=== PATIENT | female | born 1965 | race Caucasian/White ===

== ENCOUNTER 2023-04-11 16:45 | Inpatient (IN) | payer OTHER, SELFPAY ==
[~2023-04-11 16:45] MED LIST: Iopamidol-370 76% 500 ML MDV (1 ML CHARGE) ONE
[2023-04-11] MEDS ORDERED: Acetaminophen 650 MG Suppository ONE (17:07)
[2023-04-11 17:23] LABS: #Monocytes 2.5 thou/uL (0.11-0.59); #Neutrophils 12.5 thou/uL (1.40-6.50); %Basophils 0.1 % (0.0-1.0); %Eosinophils 0.1 % (0.0-10.0); %Lymphocytes 1.6 % (21.0-51.0); %Monocytes 15.5 % (0.0-10.0); %Neutrophils 78.5 % (42.0-75.0); Hemoglobin 13.4 g/dL (12.0-16.0); Mean Corpuscular HGB CONC 35.7 g/dL (32.0-36.0); Mean Corpuscular Hemoglobin 30.8 pg (27.0-31.0); Mean Corpuscular Volume 86.2 fl (78.0-98.0); Mean Platelet Volume 8.4 fL (7.4-10.4); Platelet Count 482 10x3/uL (130-400); RBC Distribution Width 12.3 % (11.5-14.5); Red Blood Cell (RBC) Count 4.35 mill/uL (4.20-5.40); White Blood Cell (WBC) Count 15.9 10x3/uL (4.8-10.8)
[2023-04-11] MEDS ORDERED: Cefepime 2 GM VIAL ONE (17:25)
[2023-04-11 17:38] LABS: CAUTI Indications for Culture Alt mental st,lethar; RBC/HPF Greater than 50 HPF (0-3); Squamous Epithelial 0-3 HPF (0-3)
[2023-04-11 17:39] LABS: Bacteria/HPF 1+ HPF (None Seen)
[2023-04-11 17:46] LABS: ALT (SGPT) 10 U/L (8-55); AST (SGOT) 15 U/L (5-34); Alkaline Phosphatase 70 U/L (40-110); Anion Gap 20 mmol/L (10-20); BUN (Urea Nitrogen) 13 mg/dL (9.8-20.1); Bilirubin, Total 0.6 mg/dL (0.2-1.2); CK (CPK) 35 U/L (29-168); Calc. Creatinine Clearance 0 mL/min (70-130); Calcium 9.3 mg/dL (7.8-10.44); Carbon Dioxide 19 mmol/L (22-29); Chloride 86 mmol/L (98-107); Estimated GFR 97; Globulin 4.1 g/dL (2.4-3.5); Glucose 145 mg/dL (70-105); Lipase 32 U/L (8-78); Potassium 3.1 mmol/L (3.5-5.1); Protein, Total 8.1 g/dL (6.0-8.3); Sodium 122 mmol/L (136-145)
[2023-04-11 17:58] LABS: Bilirubin Negative (Negative); Blood, Urine Moderate (Negative); Glucose, Urine (Dipstick) Negative (Negative); Ketone, Urine > or equal to 80 mg/dL (Negative); Leukocyte Negative (Negative); Nitrite Negative (Negative); Protein, Urine (Dipstick) 100 mg/dL (Neg-Trace); Urobilinogen 0.2 mg/dL (Less than 2); pH, Urine 6.5 (5.0-9.0)
[2023-04-11 17:59] LABS: Clarity Clear (Clear); Specific Gravity, Urine 1.021 (1.002-1.036)
[2023-04-11 18:02] LABS: Urine Culture Reflex No No
[2023-04-11] MEDS ORDERED: Succinylcholine 200 MG/10 ml SYRINGE FS ONE (18:47)
[2023-04-11] MEDS ORDERED: Propofol 1,000 MG/100 ML VIAL IV ONE (19:07)
[2023-04-11] MEDS ORDERED: Sodium Chloride 0.9% 1,000 ML IV SCH ×2 (19:15→22:30)
[2023-04-11 19:45] LABS: Actual Bicarbonate (HCO3a) 18.8 mEq/L (22-28); Analyzer IN Cardio ER; Calcium, Ionized (arterial) 1.01 mmol/L (1.12-1.30); Carboxyhemoglobin (COHb) 0.3 gm% (0.0-3.0); Hematocrit-ABG 35 % (36.0-47.0); Hemoglobin (Hb) 11.9 g/dL (12.0-16.0); O2 Tension (PaO2), arterial 368.8 mmHg (> 80.0); Potassium - ABG Lab 2.76 mmol/L (3.70-5.30); pH, Arterial 7.544 (7.35-7.45)
[2023-04-11 19:48] LABS: CO2 Tension 22.3 mmHg (35.0-45.0)
[2023-04-11 19:49] LABS: ALV-art Gradient -40.175 mmHg (0-20); Puncture Site LBA
[2023-04-11] MEDS ORDERED: Electrolyte Replacement Protocol 1 EACH IVPB SCH (19:52)
[2023-04-11] MEDS ORDERED: Acetaminophen 650 MG Suppository PR PRN (19:52)
[2023-04-11] MEDS ORDERED: Ventilator Sedation Protocol 1 EACH FS SCH (20:00)
[2023-04-11] MEDS ORDERED: Fentanyl BOLUS 250 ML IVPB PRN (20:15)
[2023-04-11] MEDS ORDERED: Propofol 1,000 MG/100 ML VIAL IV PRN (20:15)
[2023-04-11] MEDS ORDERED: Morphine 2 MG/ML VIAL SLOW IVP PRN (20:15)
[2023-04-11] MEDS ORDERED: Propofol BOLUS 1,000 MG/100 ML VIAL IV PRN (20:15)
[2023-04-11] MEDS ORDERED: DISCONTINUE PREVIOUS NARCOTIC PAIN MEDICATIONS AND BENZODIAZEPINES FS SCH (20:15)
[2023-04-11] MEDS ORDERED: Lorazepam 2 MG/ML VIAL SLOW IVP PRN (20:15)
[2023-04-11] MEDS ORDERED: Fentanyl CADD 100 ML IV SCH (20:15)
[2023-04-11] MEDS ORDERED: Vancomycin 1 GM in Premix Bag 1 BAG IVPB SCH (21:00)
[2023-04-11 21:24] LABS: CSF Source CSF; Clarity Hazy (Clear); Tube # 1
[2023-04-11 21:25] LABS: CSF Source CSF; Clarity Hazy (Clear); Tube # 4
[2023-04-11] MEDS ORDERED: VANCOMYCIN 2 GRAM/500 ML BAG 2 GM in Premix Bag 1 BAG IVPB SCH (21:30)
[2023-04-11 21:35] LABS: Acetaminophen Less than 10 mcg/mL (10.0-30.0); Salicylate Less than 8.0 mg/dL (15.0-30.0)
[2023-04-11] MEDS: AMPicillin 1 GM in Sodium Chloride 0.9% 100 ML IVPB SCH (21:42)
[2023-04-11 21:44] LABS: CSF, Glucose 20 mg/dl (40-70)
[2023-04-11 21:47] LABS: Color Of CSF Supernatant STRAW (Colorless); Unspun CSF Color COLORLESS (Colorless)
[2023-04-11 21:48] LABS: Tube # 2
[2023-04-11 22:05] LABS: Cell Count Non Hematic 6 %; Lymphocytes 4 %; Segmented Neutrophils 90 %
[2023-04-11 22:06] LABS: Cell Count Non Hematic 6 %; Lymphocytes 4 %; Segmented Neutrophils 90 %
[2023-04-11 22:07] LABS: Amphetamine Not Detected (NotDetected); Barbiturates Screen Not Detected (NotDetected); Benzodiazepine Screen Not Detected (NotDetected); Cocaine Metabolite Screen Not Detected (NotDetected); Methadone Not Detected (NotDetected); Methamphetamine Not Detected (NotDetected); Opiate Screen Not Detected (NotDetected); Oxycodone Screen Not Detected (NotDetected); Phencyclidine (PCP) Not Detected (NotDetected); THC/Cannabinoid Screen Not Detected (NotDetected); Tricyclic Screen Not Detected (NotDetected)
[2023-04-11] MEDS ORDERED: Ipratropium/Albuterol 3 ML NEB NEB PRN (22:21)
[2023-04-11] MEDS: Acyclovir Sodium 800 MG in Sodium Chloride 0.9% 250 ML 250 ML IVPB SCH (22:23)
[2023-04-11] MEDS: Potassium Chloride 20 MEQ in Premix Bag 1 BAG IVPB SCH ×2 (22:38)
[2023-04-11 22:52] LABS: CSF, Protein 536 mg/dL (15-40)
[2023-04-12] MEDS: Potassium Chloride 20 MEQ in Premix Bag 1 BAG IVPB SCH ×3 (00:40→10:13)
[2023-04-12] MEDS: AMPicillin 1 GM in Sodium Chloride 0.9% 100 ML IVPB SCH (02:22)
[2023-04-12 04:05] LABS: Hemoglobin 11.7 g/dL (12.0-16.0); Manual Diff?? YES; Mean Corpuscular HGB CONC 34.4 g/dL (32.0-36.0); Mean Corpuscular Hemoglobin 30.7 pg (27.0-31.0); Platelet Count 396 10x3/uL (130-400); RBC Distribution Width 12.6 % (11.5-14.5); Red Blood Cell (RBC) Count 3.81 mill/uL (4.20-5.40); White Blood Cell (WBC) Count 13.9 10x3/uL (4.8-10.8)
[2023-04-12 04:17] LABS: Delete Auto Diff?? YES; Mean Corpuscular Volume 89.2 fl (78.0-98.0)
[2023-04-12 04:45] LABS: Burr Cells SLIGHT = 2-5 cells HPF (0-1); CellaVision Operator ID lab.abc; Lymphocytes 3 % (21-51); Monocytes 15 % (0-10); Neutrophil 81 % (42-75); Platelet Adequacy Comment Platelets Normal; Reactive Lymphocytes 1 % (0-10); Smudge Cells 5.9 %; Total Cell Count 102
[2023-04-12 04:48] LABS: Anion Gap 23 mmol/L (10-20); BUN (Urea Nitrogen) 11 mg/dL (9.8-20.1); Calc. Creatinine Clearance 111 mL/min (70-130); Calcium 9.8 mg/dL (7.8-10.44); Carbon Dioxide 18 mmol/L (22-29); Chloride 83 mmol/L (98-107); Estimated GFR 99; Glucose 121 mg/dL (70-105); Potassium 2.9 mmol/L (3.5-5.1); Sodium 121 mmol/L (136-145)
[2023-04-12 04:51] LABS: ALT (SGPT) 8 U/L (8-55); AST (SGOT) 16 U/L (5-34); Albumin 2.8 g/dL (3.5-5.0); Alkaline Phosphatase 54 U/L (40-110); Anion Gap 14 mmol/L (10-20); BUN (Urea Nitrogen) 8 mg/dL (9.8-20.1); Bilirubin, Total 0.4 mg/dL (0.2-1.2); Calc. Creatinine Clearance 137 mL/min (70-130); Calcium 7.8 mg/dL (7.8-10.44); Carbon Dioxide 18 mmol/L (22-29); Chloride 108 mmol/L (98-107); Estimated GFR 104; Globulin 3.3 g/dL (2.4-3.5); Glucose 98 mg/dL (70-105); Potassium 3.2 mmol/L (3.5-5.1); Protein, Total 6.1 g/dL (6.0-8.3); Sodium 137 mmol/L (136-145)
[2023-04-12] MEDS ORDERED: Cefepime 1 GM in Sodium Chloride 0.9% 100 ML IVPB SCH (05:00)
[2023-04-12] MEDS: Acyclovir Sodium 800 MG in Sodium Chloride 0.9% 250 ML 250 ML IVPB SCH ×2 (05:07→13:11)
[2023-04-12] MEDS ORDERED: Lactated Ringer's 500 ML IV SCH (06:15)
[2023-04-12] MEDS: Sodium Chloride 0.9% 1,000 ML IV SCH ×2 (06:35→20:47)
[2023-04-12] MEDS ORDERED: Lactated Ringer's 1,000 ML IV SCH (06:45)
[2023-04-12] MEDS: cefTRIAXone\\ROCEPHIN 2 GM in Sodium Chloride 0.9% 100 ML IVPB SCH ×2 (10:11→20:48)
[2023-04-12] MEDS: Dexamethasone 10 MG/ML VIAL SLOW IVP SCH ×2 (10:13→20:48)
[2023-04-12] MEDS: Famotidine/PF 20 mg/2ml Vial SLOW IVP SCH ×2 (10:14→20:48)
[2023-04-12] MEDS ORDERED: Magnevist 469MG/ML 20 ML VIAL ONE (10:32)
[2023-04-12] MEDS: VANCOMYCIN 1.25 GM/250 ML BAG 1.25 GM in Premix Bag 1 BAG IVPB SCH ×2 (10:48→22:07)
[2023-04-12] MEDS ORDERED: Nitroglycerin 2% Ointment 1 INCH/1 GM Packet TOP SCH (11:30)
[2023-04-12] MEDS ORDERED: hydrALAZINE 20 MG/ML VIAL SLOW IVP SCH (11:30)
[2023-04-12] MEDS ORDERED: Lidocaine 1% w/Epinephrine 1:100K 20 ML VIAL FS SCH (12:00)
[2023-04-12] MEDS: Ampicillin 2 GM in Sodium Chloride 0.9% 100 ML IVPB SCH ×3 (14:13→20:48)
[2023-04-12] MEDS ORDERED: Labetalol HCl 100 MG/20 ML VIAL SLOW IVP PRN (19:29)
[2023-04-13] MEDS: Ampicillin 2 GM in Sodium Chloride 0.9% 100 ML IVPB SCH ×6 (01:01→20:09)
[2023-04-13] MEDS ORDERED: Sodium Chloride 0.9% 500 ML IV SCH (01:30)
[2023-04-13 05:30] LABS: ALT (SGPT) 10 U/L (8-55); AST (SGOT) 20 U/L (5-34); Albumin 2.9 g/dL (3.5-5.0); Alkaline Phosphatase 59 U/L (40-110); Anion Gap 19 mmol/L (10-20); BUN (Urea Nitrogen) 9 mg/dL (9.8-20.1); Bilirubin, Total 0.2 mg/dL (0.2-1.2); Calc. Creatinine Clearance 145 mL/min (70-130); Calcium 8.5 mg/dL (7.8-10.44); Carbon Dioxide 16 mmol/L (22-29); Chloride 103 mmol/L (98-107); Estimated GFR 104; Globulin 3.7 g/dL (2.4-3.5); Glucose 117 mg/dL (70-105); Magnesium 1.8 mg/dL (1.6-2.6); Phosphorus 2.2 mg/dL (2.3-4.7); Potassium 3.7 mmol/L (3.5-5.1); Protein, Total 6.6 g/dL (6.0-8.3); Sodium 134 mmol/L (136-145)
[2023-04-13] MEDS ORDERED: Magnesium 2 GM/50 ML(in water) 2 GM in Premix Bag 1 BAG IVPB SCH (08:00)
[2023-04-13] MEDS: Famotidine/PF 20 mg/2ml Vial SLOW IVP SCH ×2 (08:14→20:08)
[2023-04-13] MEDS: cefTRIAXone\\ROCEPHIN 2 GM in Sodium Chloride 0.9% 100 ML IVPB SCH ×2 (08:14→20:08)
[2023-04-13] MEDS: Dexamethasone 10 MG/ML VIAL SLOW IVP SCH ×2 (08:14→20:08)
[2023-04-13] MEDS: Sodium Chloride 0.9% 1,000 ML IV SCH ×2 (08:15→16:27)
[2023-04-13 11:02] LABS: Vancomycin, Trough 8.5 ug/mL
[2023-04-13] MEDS: VANCOMYCIN 1.25 GM/250 ML BAG 1.25 GM in Premix Bag 1 BAG IVPB SCH (11:42)
[2023-04-13] MEDS: VANCOMYCIN 1.75 GM/500 ML BAG 1.75 GM in Premix Bag 1 BAG IVPB SCH ×2 (12:02→23:59)
[2023-04-13 12:44] LABS: #Monocytes 1.2 thou/uL (0.11-0.59); #Neutrophils 12.7 thou/uL (1.40-6.50); %Basophils 0.1 % (0.0-1.0); %Lymphocytes 2.1 % (21.0-51.0); %Monocytes 8.3 % (0.0-10.0); %Neutrophils 87.7 % (42.0-75.0); Hemoglobin 12.9 g/dL (12.0-16.0); Mean Corpuscular HGB CONC 33.5 g/dL (32.0-36.0); Mean Corpuscular Hemoglobin 30.4 pg (27.0-31.0); Mean Corpuscular Volume 90.8 fl (78.0-98.0); Mean Platelet Volume 8.9 fL (7.4-10.4); Platelet Count 381 10x3/uL (130-400); Red Blood Cell (RBC) Count 4.24 mill/uL (4.20-5.40); White Blood Cell (WBC) Count 14.5 10x3/uL (4.8-10.8)
[2023-04-13] MEDS ORDERED: Furosemide 20 MG/2 ML VIAL SLOW IVP SCH (23:30)
[2023-04-13] MEDS: Albumin 25% 25 GM/100 ML BOT IVPB SCH (23:37)
[2023-04-14] MEDS: Ampicillin 2 GM in Sodium Chloride 0.9% 100 ML IVPB SCH ×6 (00:02→20:51)
[2023-04-14] MEDS: Albumin 25% 25 GM/100 ML BOT IVPB SCH ×3 (05:17→17:10)
[2023-04-14 08:26] LABS: #Monocytes 0.9 thou/uL (0.11-0.59); #Neutrophils 8.7 thou/uL (1.40-6.50); %Basophils 0.1 % (0.0-1.0); %Lymphocytes 3.8 % (21.0-51.0); %Monocytes 9.1 % (0.0-10.0); %Neutrophils 85.6 % (42.0-75.0); Hemoglobin 10.5 g/dL (12.0-16.0); Mean Corpuscular Hemoglobin 31.2 pg (27.0-31.0); Mean Platelet Volume 8.3 fL (7.4-10.4); Platelet Count 367 10x3/uL (130-400); RBC Distribution Width 13.2 % (11.5-14.5); Red Blood Cell (RBC) Count 3.37 mill/uL (4.20-5.40); White Blood Cell (WBC) Count 10.1 10x3/uL (4.8-10.8)
[2023-04-14] MEDS: Dexamethasone 10 MG/ML VIAL SLOW IVP SCH ×2 (08:48→20:51)
[2023-04-14] MEDS: cefTRIAXone\\ROCEPHIN 2 GM in Sodium Chloride 0.9% 100 ML IVPB SCH ×2 (08:48→20:51)
[2023-04-14] MEDS: Famotidine/PF 20 mg/2ml Vial SLOW IVP SCH ×2 (08:48→20:51)
[2023-04-14 08:51] LABS: ALT (SGPT) 10 U/L (8-55); AST (SGOT) 7 U/L (5-34); Albumin 3.7 g/dL (3.5-5.0); Alkaline Phosphatase 45 U/L (40-110); Anion Gap 17 mmol/L (10-20); BUN (Urea Nitrogen) 16 mg/dL (9.8-20.1); Bilirubin, Total 0.3 mg/dL (0.2-1.2); Calc. Creatinine Clearance 142 mL/min (70-130); Calcium 9.2 mg/dL (7.8-10.44); Carbon Dioxide 23 mmol/L (22-29); Chloride 102 mmol/L (98-107); Estimated GFR 104; Globulin 2.6 g/dL (2.4-3.5); Glucose 120 mg/dL (70-105); Potassium 2.8 mmol/L (3.5-5.1); Protein, Total 6.3 g/dL (6.0-8.3); Sodium 139 mmol/L (136-145)
[2023-04-14] MEDS: Potassium Chloride 20 MEQ in Premix Bag 1 BAG IVPB SCH ×4 (09:21→15:28)
[2023-04-14] MEDS ORDERED: Potassium Chloride 20 MEQ in Premix Bag 1 BAG IVPB SCH (10:30)
[2023-04-14] MEDS: VANCOMYCIN 1.75 GM/500 ML BAG 1.75 GM in Premix Bag 1 BAG IVPB SCH (11:45)
[2023-04-14 13:04] LABS: Reference Lab Name LABCORP
[2023-04-14] MEDS: hydrALAZINE 20 MG/ML VIAL SLOW IVP PRN (21:11)
[2023-04-14 23:39] LABS: Potassium 3.3 mmol/L (3.5-5.1)
[2023-04-14 23:44] LABS: Vancomycin, Trough 14.6 ug/mL
[2023-04-15] MEDS: Ampicillin 2 GM in Sodium Chloride 0.9% 100 ML IVPB SCH ×6 (00:27→21:21)
[2023-04-15] MEDS: VANCOMYCIN 1.75 GM/500 ML BAG 1.75 GM in Premix Bag 1 BAG IVPB SCH ×2 (00:27→13:06)
[2023-04-15] MEDS: Potassium Chloride 20 MEQ in Premix Bag 1 BAG IVPB SCH ×2 (01:46→03:26)
[2023-04-15 05:04] LABS: #Monocytes 0.5 thou/uL (0.11-0.59); #Neutrophils 6.8 thou/uL (1.40-6.50); %Basophils 0.1 % (0.0-1.0); %Lymphocytes 2.9 % (21.0-51.0); %Neutrophils 88.8 % (42.0-75.0); Hemoglobin 9.9 g/dL (12.0-16.0); Mean Corpuscular HGB CONC 34.5 g/dL (32.0-36.0); Mean Corpuscular Hemoglobin 30.9 pg (27.0-31.0); Mean Corpuscular Volume 89.7 fl (78.0-98.0); Mean Platelet Volume 8.4 fL (7.4-10.4); Platelet Count 388 10x3/uL (130-400); RBC Distribution Width 13.1 % (11.5-14.5); White Blood Cell (WBC) Count 7.6 10x3/uL (4.8-10.8)
[2023-04-15 05:27] LABS: Phosphorus 2.8 mg/dL (2.3-4.7)
[2023-04-15 06:47] LABS: ALT (SGPT) 26 U/L (8-55); AST (SGOT) 22 U/L (5-34); Albumin 3.9 g/dL (3.5-5.0); Alkaline Phosphatase 47 U/L (40-110); Anion Gap 13 mmol/L (10-20); BUN (Urea Nitrogen) 12 mg/dL (9.8-20.1); Bilirubin, Total 0.3 mg/dL (0.2-1.2); Calc. Creatinine Clearance 143 mL/min (70-130); Calcium 9.3 mg/dL (7.8-10.44); Carbon Dioxide 25 mmol/L (22-29); Chloride 103 mmol/L (98-107); Estimated GFR 104; Globulin 2.4 g/dL (2.4-3.5); Glucose 141 mg/dL (70-105); Magnesium 1.8 mg/dL (1.6-2.6); Potassium 4.3 mmol/L (3.5-5.1); Protein, Total 6.3 g/dL (6.0-8.3); Sodium 137 mmol/L (136-145)
[2023-04-15] MEDS ORDERED: Magnesium 2 GM/50 ML(in water) 2 GM in Premix Bag 1 BAG IVPB SCH (08:00)
[2023-04-15] MEDS: cefTRIAXone\\ROCEPHIN 2 GM in Sodium Chloride 0.9% 100 ML IVPB SCH ×2 (09:10→21:22)
[2023-04-15] MEDS: Dexamethasone 10 MG/ML VIAL SLOW IVP SCH ×2 (09:10→21:23)
[2023-04-15] MEDS: Famotidine/PF 20 mg/2ml Vial SLOW IVP SCH ×2 (09:10→21:23)
[2023-04-15] MEDS ORDERED: hydrALAZINE 25 MG TAB PO PRN (13:52)
[2023-04-15] MEDS ORDERED: Losartan 25 MG TAB PO SCH (14:15)
[2023-04-16] MEDS: VANCOMYCIN 1.75 GM/500 ML BAG 1.75 GM in Premix Bag 1 BAG IVPB SCH ×2 (01:00→11:02)
[2023-04-16] MEDS: Ampicillin 2 GM in Sodium Chloride 0.9% 100 ML IVPB SCH ×6 (01:06→21:55)
[2023-04-16 04:19] LABS: #Monocytes 0.4 thou/uL (0.11-0.59); %Basophils 0.1 % (0.0-1.0); %Lymphocytes 3.8 % (21.0-51.0); %Monocytes 5.2 % (0.0-10.0); Hemoglobin 10.9 g/dL (12.0-16.0); Mean Corpuscular HGB CONC 34.2 g/dL (32.0-36.0); Mean Corpuscular Hemoglobin 30.8 pg (27.0-31.0); Mean Corpuscular Volume 90.1 fl (78.0-98.0); Mean Platelet Volume 8.4 fL (7.4-10.4); Platelet Count 429 10x3/uL (130-400); Red Blood Cell (RBC) Count 3.54 mill/uL (4.20-5.40); White Blood Cell (WBC) Count 7.9 10x3/uL (4.8-10.8)
[2023-04-16 04:43] LABS: ALT (SGPT) 28 U/L (8-55); AST (SGOT) 16 U/L (5-34); Albumin 3.5 g/dL (3.5-5.0); Alkaline Phosphatase 46 U/L (40-110); Anion Gap 14 mmol/L (10-20); BUN (Urea Nitrogen) 14 mg/dL (9.8-20.1); Bilirubin, Total 0.3 mg/dL (0.2-1.2); Calc. Creatinine Clearance 138 mL/min (70-130); Calcium 8.9 mg/dL (7.8-10.44); Carbon Dioxide 24 mmol/L (22-29); Chloride 102 mmol/L (98-107); Estimated GFR 103; Globulin 2.7 g/dL (2.4-3.5); Glucose 141 mg/dL (70-105); Magnesium 1.8 mg/dL (1.6-2.6); Protein, Total 6.2 g/dL (6.0-8.3); Sodium 136 mmol/L (136-145)
[2023-04-16 05:08] LABS: Phosphorus 3.7 mg/dL (2.3-4.7)
[2023-04-16] MEDS ORDERED: Magnesium 2 GM/50 ML(in water) 2 GM in Premix Bag 1 BAG IVPB SCH (08:00)
[2023-04-16] MEDS: cefTRIAXone\\ROCEPHIN 2 GM in Sodium Chloride 0.9% 100 ML IVPB SCH ×2 (08:02→21:56)
[2023-04-16] MEDS: Famotidine/PF 20 mg/2ml Vial SLOW IVP SCH ×2 (08:03→21:56)
[2023-04-16] MEDS: Dexamethasone 10 MG/ML VIAL SLOW IVP SCH ×2 (08:03→21:56)
[2023-04-16] MEDS: Losartan 25 MG TAB PO SCH (08:03)
[2023-04-16 16:15] LABS: West Nile Virus IgG Ab Negative (Negative); West Nile Virus IgM Ab Negative (Negative)
[2023-04-16] MEDS ORDERED: Midazolam HCl 2 mg/2 ml Vial ONE (16:53)
[2023-04-16] MEDS ORDERED: Bupivacaine HCl 0.5%/Epinephrine 1:200,000/PF 30 ml Vial ONE (17:35)
[2023-04-16] MEDS ORDERED: Lidocaine 2% PF 5 ML VIAL ONE (17:35)
[2023-04-16] MEDS ORDERED: fentaNYL PF 100 MCG/2 ML SYRINGE ONE (17:36)
[2023-04-16] MEDS ORDERED: PROPOFOL 200 MG/20 ML VIAL ONE (17:57)
[2023-04-16] MEDS ORDERED: Labetalol HCl 100 MG/20 ML VIAL ONE (17:57)
[2023-04-16] MEDS ORDERED: Rocuronium Bromide 10 MG/ML (10ML VIAL) ONE (17:57)
[2023-04-16 23:36] LABS: Vancomycin, Trough 19.9 ug/mL
[2023-04-17] MEDS: VANCOMYCIN 1.75 GM/500 ML BAG 1.75 GM in Premix Bag 1 BAG IVPB SCH ×2 (00:23→12:00)
[2023-04-17] MEDS: Ampicillin 2 GM in Sodium Chloride 0.9% 100 ML IVPB SCH ×6 (02:28→20:23)
[2023-04-17 03:56] LABS: #Monocytes 0.7 thou/uL (0.11-0.59); #Neutrophils 9.6 thou/uL (1.40-6.50); %Basophils 0.1 % (0.0-1.0); %Lymphocytes 2.5 % (21.0-51.0); Hemoglobin 11.6 g/dL (12.0-16.0); Mean Corpuscular HGB CONC 33.2 g/dL (32.0-36.0); Mean Corpuscular Hemoglobin 30.8 pg (27.0-31.0); Mean Corpuscular Volume 92.6 fl (78.0-98.0); Mean Platelet Volume 8.5 fL (7.4-10.4); Platelet Count 444 10x3/uL (130-400); RBC Distribution Width 13.2 % (11.5-14.5); Red Blood Cell (RBC) Count 3.77 mill/uL (4.20-5.40); White Blood Cell (WBC) Count 10.8 10x3/uL (4.8-10.8)
[2023-04-17 04:20] LABS: ALT (SGPT) 23 U/L (8-55); AST (SGOT) 14 U/L (5-34); Albumin 3.6 g/dL (3.5-5.0); Alkaline Phosphatase 48 U/L (40-110); Anion Gap 17 mmol/L (10-20); BUN (Urea Nitrogen) 13 mg/dL (9.8-20.1); Bilirubin, Total 0.3 mg/dL (0.2-1.2); Calc. Creatinine Clearance 134 mL/min (70-130); Calcium 8.8 mg/dL (7.8-10.44); Carbon Dioxide 21 mmol/L (22-29); Chloride 105 mmol/L (98-107); Estimated GFR 101; Globulin 2.7 g/dL (2.4-3.5); Glucose 141 mg/dL (70-105); Potassium 4.1 mmol/L (3.5-5.1); Protein, Total 6.3 g/dL (6.0-8.3); Sodium 139 mmol/L (136-145)
[2023-04-17] MEDS ORDERED: Magnesium 2 GM/50 ML(in water) 2 GM in Premix Bag 1 BAG IVPB SCH (08:00)
[2023-04-17] MEDS: Losartan 25 MG TAB PO SCH (08:55)
[2023-04-17] MEDS: Famotidine/PF 20 mg/2ml Vial SLOW IVP SCH ×2 (08:55→20:24)
[2023-04-17] MEDS: Dexamethasone 10 MG/ML VIAL SLOW IVP SCH ×2 (08:56→20:24)
[2023-04-17] MEDS: cefTRIAXone\\ROCEPHIN 2 GM in Sodium Chloride 0.9% 100 ML IVPB SCH ×2 (08:58→20:23)
[2023-04-17] MEDS: Atorvastatin Calcium 40 MG TAB PO SCH (20:25)
[2023-04-17] MEDS: Acetaminophen 325 MG TAB PER TUBE PRN (20:25)
[2023-04-18] MEDS: Ampicillin 2 GM in Sodium Chloride 0.9% 100 ML IVPB SCH ×6 (00:13→20:40)
[2023-04-18] MEDS: VANCOMYCIN 1.75 GM/500 ML BAG 1.75 GM in Premix Bag 1 BAG IVPB SCH ×2 (00:13→12:56)
[2023-04-18] MEDS: Acetaminophen 325 MG TAB PER TUBE PRN (03:40)
[2023-04-18 03:54] LABS: Hemoglobin 11.1 g/dL (12.0-16.0); Mean Corpuscular HGB CONC 33.2 g/dL (32.0-36.0); Mean Corpuscular Hemoglobin 30.7 pg (27.0-31.0); Mean Corpuscular Volume 92.5 fl (78.0-98.0); Mean Platelet Volume 8.6 fL (7.4-10.4); Platelet Count 445 10x3/uL (130-400); RBC Distribution Width 13.4 % (11.5-14.5); Red Blood Cell (RBC) Count 3.61 mill/uL (4.20-5.40); White Blood Cell (WBC) Count 12.8 10x3/uL (4.8-10.8)
[2023-04-18 04:02] LABS: Delete Auto Diff?? YES; Manual Diff?? YES
[2023-04-18 04:04] LABS: Hemoglobin A1c 5.4 % (4.0-6.0)
[2023-04-18 04:22] LABS: ALT (SGPT) 31 U/L (8-55); AST (SGOT) 18 U/L (5-34); Albumin 3.5 g/dL (3.5-5.0); Alkaline Phosphatase 46 U/L (40-110); Anion Gap 14 mmol/L (10-20); BUN (Urea Nitrogen) 24 mg/dL (9.8-20.1); Bilirubin, Total 0.3 mg/dL (0.2-1.2); Calc. Creatinine Clearance 139 mL/min (70-130); Calcium 8.6 mg/dL (7.8-10.44); Carbon Dioxide 23 mmol/L (22-29); Cardiac Risk 4.1 (Less than 4.5); Chloride 105 mmol/L (98-107); Cholesterol 136 mg/dl (< 200 Desired); Estimated GFR 102; Globulin 2.6 g/dL (2.4-3.5); Glucose 199 mg/dL (70-105); HDL Cholesterol 33 mg/dL (>60 Neg Risk); LDL Cholesterol, Calculated 88 mg/dL; Potassium 3.9 mmol/L (3.5-5.1); Protein, Total 6.1 g/dL (6.0-8.3); Sodium 138 mmol/L (136-145); Triglycerides 74 mg/dL (Less than 150)
[2023-04-18 04:31] LABS: Burr Cells SLIGHT = 2-5 cells HPF (0-1); CellaVision Operator ID lab.abc; Lymphocytes 1 % (21-51); Monocytes 2 % (0-10); Neutrophil 97 % (42-75); Platelet Adequacy Comment Platelets Normal; RBC Morphology Within Normal Limits; Total Cell Count 101
[2023-04-18] MEDS: Dexamethasone 10 MG/ML VIAL SLOW IVP SCH ×2 (08:56→20:41)
[2023-04-18] MEDS: Famotidine/PF 20 mg/2ml Vial SLOW IVP SCH ×2 (08:56→20:41)
[2023-04-18] MEDS: cefTRIAXone\\ROCEPHIN 2 GM in Sodium Chloride 0.9% 100 ML IVPB SCH ×2 (08:57→20:40)
[2023-04-18] MEDS: Losartan 25 MG TAB PO SCH (10:21)
[2023-04-18] MEDS: Aspirin 81 mg Enteric Coated Tablet PO SCH (10:21)
[2023-04-18 11:45] LABS: Vancomycin, Trough 17.6 ug/mL
[2023-04-18 15:24] VITALS: BMI 29.3
[2023-04-18] MEDS ORDERED: Magnevist 469MG/ML 20 ML VIAL ONE (15:34)
[2023-04-18] MEDS: Atorvastatin Calcium 40 MG TAB PO SCH (20:41)
[2023-04-18] MEDS: hydrALAZINE 20 MG/ML VIAL SLOW IVP PRN (21:47)
[2023-04-19] MEDS: VANCOMYCIN 1.75 GM/500 ML BAG 1.75 GM in Premix Bag 1 BAG IVPB SCH ×2 (00:07→11:47)
[2023-04-19] MEDS: Ampicillin 2 GM in Sodium Chloride 0.9% 100 ML IVPB SCH ×6 (00:59→20:04)
[2023-04-19 04:00] LABS: #Monocytes 1.6 thou/uL (0.11-0.59); #Neutrophils 13.8 thou/uL (1.40-6.50); %Basophils 0.1 % (0.0-1.0); %Lymphocytes 2.6 % (21.0-51.0); %Monocytes 9.5 % (0.0-10.0); %Neutrophils 80.8 % (42.0-75.0); Hemoglobin 11.3 g/dL (12.0-16.0); Mean Corpuscular HGB CONC 33.2 g/dL (32.0-36.0); Mean Corpuscular Hemoglobin 30.9 pg (27.0-31.0); Mean Corpuscular Volume 92.9 fl (78.0-98.0); Mean Platelet Volume 8.7 fL (7.4-10.4); RBC Distribution Width 13.3 % (11.5-14.5); Red Blood Cell (RBC) Count 3.66 mill/uL (4.20-5.40); White Blood Cell (WBC) Count 17.1 10x3/uL (4.8-10.8)
[2023-04-19 04:09] LABS: Platelet Count 440 10x3/uL (130-400)
[2023-04-19 04:26] LABS: ALT (SGPT) 29 U/L (8-55); AST (SGOT) 14 U/L (5-34); Albumin 3.5 g/dL (3.5-5.0); Alkaline Phosphatase 44 U/L (40-110); Anion Gap 13 mmol/L (10-20); BUN (Urea Nitrogen) 17 mg/dL (9.8-20.1); Bilirubin, Total 0.3 mg/dL (0.2-1.2); Calc. Creatinine Clearance 148 mL/min (70-130); Calcium 8.9 mg/dL (7.8-10.44); Carbon Dioxide 27 mmol/L (22-29); Chloride 99 mmol/L (98-107); Estimated GFR 104; Globulin 2.7 g/dL (2.4-3.5); Glucose 141 mg/dL (70-105); Protein, Total 6.2 g/dL (6.0-8.3); Sodium 135 mmol/L (136-145)
[2023-04-19 07:55] LABS: Actual Bicarbonate (HCO3a) 26.1 mEq/L (22-28); Base Excess (BEa) 2.9 mEq/L (-2.0 to +3.0); CO2 Tension 35.1 mmHg (35.0-45.0); Calcium, Ionized (arterial) 1.16 mmol/L (1.12-1.30); Carboxyhemoglobin (COHb) 0.3 gm% (0.0-3.0); Hematocrit-ABG 36 % (36.0-47.0); Hemoglobin (Hb) 12.1 g/dL (12.0-16.0); O2 Tension (PaO2), arterial 147.4 mmHg (> 80.0); Potassium - ABG Lab 3.91 mmol/L (3.70-5.30); pH, Arterial 7.489 (7.35-7.45)
[2023-04-19 07:58] LABS: ALV-art Gradient 58.275 mmHg (0-20); Puncture Site LRA
[2023-04-19] MEDS: cefTRIAXone\\ROCEPHIN 2 GM in Sodium Chloride 0.9% 100 ML IVPB SCH ×2 (10:03→20:05)
[2023-04-19] MEDS: Famotidine/PF 20 mg/2ml Vial SLOW IVP SCH ×2 (10:03→20:04)
[2023-04-19] MEDS: Losartan 25 MG TAB PO SCH (10:04)
[2023-04-19] MEDS: Aspirin 81 mg Enteric Coated Tablet PO SCH (10:04)
[2023-04-19] MEDS: Dexamethasone 10 MG/ML VIAL SLOW IVP SCH (10:04)
[2023-04-19] MEDS: Atorvastatin Calcium 40 MG TAB PO SCH (20:04)
[2023-04-19] MEDS ORDERED: Metoclopramide HCl 10 MG/2 ML VIAL IVP SCH (21:00)
[2023-04-20] MEDS: Ampicillin 2 GM in Sodium Chloride 0.9% 100 ML IVPB SCH ×6 (00:26→20:09)
[2023-04-20] MEDS: VANCOMYCIN 1.75 GM/500 ML BAG 1.75 GM in Premix Bag 1 BAG IVPB SCH ×2 (00:26→11:14)
[2023-04-20 04:58] LABS: #Monocytes 3.1 thou/uL (0.11-0.59); #Neutrophils 11.8 thou/uL (1.40-6.50); %Basophils 0.1 % (0.0-1.0); %Lymphocytes 5.8 % (21.0-51.0); %Monocytes 18.9 % (0.0-10.0); %Neutrophils 72.3 % (42.0-75.0); Hemoglobin 11.1 g/dL (12.0-16.0); Mean Corpuscular Hemoglobin 30.6 pg (27.0-31.0); Mean Corpuscular Volume 92.6 fl (78.0-98.0); Platelet Count 427 10x3/uL (130-400); RBC Distribution Width 13.5 % (11.5-14.5); Red Blood Cell (RBC) Count 3.63 mill/uL (4.20-5.40); White Blood Cell (WBC) Count 16.3 10x3/uL (4.8-10.8)
[2023-04-20 05:24] LABS: ALT (SGPT) 30 U/L (8-55); AST (SGOT) 13 U/L (5-34); Albumin 3.4 g/dL (3.5-5.0); Alkaline Phosphatase 45 U/L (40-110); Anion Gap 13 mmol/L (10-20); BUN (Urea Nitrogen) 19 mg/dL (9.8-20.1); Bilirubin, Total 0.3 mg/dL (0.2-1.2); Calc. Creatinine Clearance 142 mL/min (70-130); Calcium 8.8 mg/dL (7.8-10.44); Carbon Dioxide 28 mmol/L (22-29); Chloride 97 mmol/L (98-107); Estimated GFR 103; Globulin 2.7 g/dL (2.4-3.5); Glucose 114 mg/dL (70-105); Potassium 3.7 mmol/L (3.5-5.1); Protein, Total 6.1 g/dL (6.0-8.3); Sodium 134 mmol/L (136-145)
[2023-04-20 07:33] LABS: Actual Bicarbonate (HCO3a) 26.4 mEq/L (22-28); Analyzer IN Cardio ER; CO2 Tension 36.1 mmHg (35.0-45.0); Calcium, Ionized (arterial) 1.17 mmol/L (1.12-1.30); Carboxyhemoglobin (COHb) 0.3 gm% (0.0-3.0); Hematocrit-ABG 36 % (36.0-47.0); Hemoglobin (Hb) 12.1 g/dL (12.0-16.0); O2 Tension (PaO2), arterial 127.7 mmHg (> 80.0); Potassium - ABG Lab 3.56 mmol/L (3.70-5.30); pH, Arterial 7.482 (7.35-7.45)
[2023-04-20 07:43] LABS: ALV-art Gradient 76.725 mmHg (0-20); Puncture Site LRA
[2023-04-20] MEDS: Famotidine/PF 20 mg/2ml Vial SLOW IVP SCH ×2 (08:57→20:09)
[2023-04-20] MEDS: cefTRIAXone\\ROCEPHIN 2 GM in Sodium Chloride 0.9% 100 ML IVPB SCH ×2 (08:57→20:09)
[2023-04-20] MEDS: Aspirin 81 mg Enteric Coated Tablet PO SCH (08:58)
[2023-04-20] MEDS: Losartan 25 MG TAB PO SCH (08:58)
[2023-04-20] MEDS: Atorvastatin Calcium 40 MG TAB PO SCH (20:09)
[2023-04-21] MEDS: VANCOMYCIN 1.75 GM/500 ML BAG 1.75 GM in Premix Bag 1 BAG IVPB SCH (00:09)
[2023-04-21] MEDS: Ampicillin 2 GM in Sodium Chloride 0.9% 100 ML IVPB SCH ×3 (00:09→09:23)
[2023-04-21] MEDS: hydrALAZINE 20 MG/ML VIAL SLOW IVP PRN (02:06)
[2023-04-21] MEDS ORDERED: Sodium Chloride 0.9% 1,000 ML IV SCH (04:15)
[2023-04-21] MEDS ORDERED: NOREPINEPHRINE 8 MG/250 ML-D5W 250 ML ONE (04:30)
[2023-04-21] MEDS ORDERED: NOREPINEPHRINE 8 MG/250 ML-D5W 250 ML IVPB SCH (04:30)
[2023-04-21 07:06] VITALS: BP 98/68
[2023-04-21 08:33] LABS: Hemoglobin 11.8 g/dL (12.0-16.0); Manual Diff?? YES; Mean Corpuscular HGB CONC 33.4 g/dL (32.0-36.0); Mean Corpuscular Hemoglobin 31.2 pg (27.0-31.0); Mean Corpuscular Volume 93.4 fl (78.0-98.0); Mean Platelet Volume 8.8 fL (7.4-10.4); Platelet Count 408 10x3/uL (130-400); RBC Distribution Width 13.4 % (11.5-14.5); Red Blood Cell (RBC) Count 3.78 mill/uL (4.20-5.40); White Blood Cell (WBC) Count 17.4 10x3/uL (4.8-10.8)
[2023-04-21 08:40] LABS: Delete Auto Diff?? YES
[2023-04-21 08:56] LABS: ALT (SGPT) 29 U/L (8-55); AST (SGOT) 16 U/L (5-34); Albumin 3.3 g/dL (3.5-5.0); Alkaline Phosphatase 48 U/L (40-110); Anion Gap 14 mmol/L (10-20); BUN (Urea Nitrogen) 18 mg/dL (9.8-20.1); Bilirubin, Total 0.4 mg/dL (0.2-1.2); Calc. Creatinine Clearance 142 mL/min (70-130); Calcium 8.9 mg/dL (7.8-10.44); Carbon Dioxide 24 mmol/L (22-29); Chloride 105 mmol/L (98-107); Estimated GFR 103; Glucose 220 mg/dL (70-105); Potassium 3.7 mmol/L (3.5-5.1); Protein, Total 6.3 g/dL (6.0-8.3); Sodium 139 mmol/L (136-145)
[2023-04-21] MEDS: cefTRIAXone\\ROCEPHIN 2 GM in Sodium Chloride 0.9% 100 ML IVPB SCH (09:22)
[2023-04-21] MEDS: Aspirin 81 mg Enteric Coated Tablet PO SCH (09:23)
[2023-04-21] MEDS: Famotidine/PF 20 mg/2ml Vial SLOW IVP SCH (09:23)
[2023-04-21 09:27] LABS: Anisocytosis SLIGHT = 6-15 cells HPF (0-5); Burr Cells SLIGHT = 2-5 cells HPF (0-1); CellaVision Operator ID LAB.NR; Eosinophils 1 % (0-10); Lymphocytes 4 % (21-51); Macrocytosis SLIGHT = 6-15 cells HPF (0-5); Monocytes 14 % (0-10); Neutrophil 82 % (42-75); Platelet Adequacy Comment Platelets Increased; Polychromasia SLIGHT = 2-3 cells HPF (0-2); Smudge Cells 5.8 %; Total Cell Count 104
[2023-04-21 09:56] LABS: Actual Bicarbonate (HCO3a) 27.2 mEq/L (22-28); CO2 Tension 49.5 mmHg (35.0-45.0); Calcium, Ionized (arterial) 1.21 mmol/L (1.12-1.30); Carboxyhemoglobin (COHb) 0.5 gm% (0.0-3.0); Hematocrit-ABG 41 % (36.0-47.0); Hemoglobin (Hb) 13.9 g/dL (12.0-16.0); O2 Tension (PaO2), arterial 465.4 mmHg (> 80.0); Potassium - ABG Lab 3.61 mmol/L (3.70-5.30); pH, Arterial 7.358 (7.35-7.45)
[2023-04-21 09:59] LABS: Actual Bicarbonate (HCO3a) 31.2 mEq/L (22-28); Base Excess (BEa) 3.9 mEq/L (-2.0 to +3.0); CO2 Tension 58.6 mmHg (35.0-45.0); Calcium, Ionized (arterial) 1.23 mmol/L (1.12-1.30); Carboxyhemoglobin (COHb) 0.6 gm% (0.0-3.0); Hematocrit-ABG 40 % (36.0-47.0); Hemoglobin (Hb) 13.6 g/dL (12.0-16.0); O2 Tension (PaO2), arterial 496.4 mmHg (> 80.0); Potassium - ABG Lab 3.49 mmol/L (3.70-5.30); pH, Arterial 7.344 (7.35-7.45)
[2023-04-21 10:02] LABS: Puncture Site LR
[2023-04-21 10:04] LABS: Puncture Site LR
[2023-04-21 10:08] LABS: Actual Bicarbonate (HCO3a) 27.6 mEq/L (22-28); Base Excess (BEa) 4.7 mEq/L (-2.0 to +3.0); CO2 Tension 35.1 mmHg (35.0-45.0); Calcium, Ionized (arterial) 1.19 mmol/L (1.12-1.30); Carboxyhemoglobin (COHb) 0.1 gm% (0.0-3.0); Hematocrit-ABG 39 % (36.0-47.0); Hemoglobin (Hb) 13.4 g/dL (12.0-16.0); O2 Tension (PaO2), arterial 533.8 mmHg (> 80.0); Potassium - ABG Lab 3.72 mmol/L (3.70-5.30); pH, Arterial 7.513 (7.35-7.45)
[2023-04-21] MEDS: Losartan 25 MG TAB PO SCH (10:08)
[2023-04-21 10:09] LABS: Puncture Site LR
[2023-04-21 10:10] LABS: ALV-art Gradient 135.325 mmHg (0-20)
[2023-04-21 10:13] VITALS: TEMP 97.6
== END 2023-04-21 09:57 | disposition expired | DRG 3 ==
LOC: ERS 16:45 → CCU 18:59
PROVIDERS: ADMIT Student in an Organized Health Care Education/Training Program; ATTEND Family Medicine
PROC: 5A1955Z Respiratory Ventilation, Greater than 96 Consecutive Hours (ICD-10-PCS; 2023-04-11)
PROC: 0BH17EZ Insertion of Endotracheal Airway into Trachea, Via Natural or Artificial Opening (ICD-10-PCS; 2023-04-11)
PROC: 009U3ZX Drainage of Spinal Canal, Percutaneous Approach, Diagnostic (ICD-10-PCS; 2023-04-11)
PROC: 0DH673Z Insertion of Infusion Device into Stomach, Via Natural or Artificial Opening (ICD-10-PCS; 2023-04-11)
PROC: 4A133R1 Monitoring of Arterial Saturation, Peripheral, Percutaneous Approach (ICD-10-PCS; 2023-04-11)
PROC: 3E03329 Introduction of Other Anti-infective into Peripheral Vein, Percutaneous Approach (ICD-10-PCS; 2023-04-11)
PROC: 009600Z Drainage of Cerebral Ventricle with Drainage Device, Open Approach (ICD-10-PCS; 2023-04-12)
PROC: 30233J1 Transfusion of Nonautologous Serum Albumin into Peripheral Vein, Percutaneous Approach (ICD-10-PCS; 2023-04-12)
PROC: 4A10X4Z Monitoring of Central Nervous Electrical Activity, External Approach (ICD-10-PCS; 2023-04-13)
PROC: 0B110Z4 Bypass Trachea to Cutaneous, Open Approach (ICD-10-PCS; principal; 2023-04-16)
PROC: 0DH64UZ Insertion of Feeding Device into Stomach, Percutaneous Endoscopic Approach (ICD-10-PCS; 2023-04-16)
PROC: 3E0G76Z Introduction of Nutritional Substance into Upper GI, Via Natural or Artificial Opening (ICD-10-PCS; 2023-04-16)
PROC: 3E033XZ Introduction of Vasopressor into Peripheral Vein, Percutaneous Approach (ICD-10-PCS; 2023-04-16)
DX: A41.9 Sepsis, unspecified organism (principal); G06.0 Intracranial abscess and granuloma; G93.41 Metabolic encephalopathy; J96.01 Acute respiratory failure with hypoxia; I63.9 Cerebral infarction, unspecified; G93.6 Cerebral edema; G03.9 Meningitis, unspecified; E87.1 Hypo-osmolality and hyponatremia; E87.20 Acidosis, unspecified; E46 Unspecified protein-calorie malnutrition; R65.20 Severe sepsis without septic shock; R13.12 Dysphagia, oropharyngeal phase; R29.6 Repeated falls; I10 Essential (primary) hypertension; E87.6 Hypokalemia; G93.89 Other specified disorders of brain; E88.89 Other specified metabolic disorders; G62.9 Polyneuropathy, unspecified; K21.9 Gastro-esophageal reflux disease without esophagitis; Z88.5 Allergy status to narcotic agent; Z88.8 Allergy status to other drugs, medicaments and biological substances; Z98.1 Arthrodesis status; Z68.30 Body mass index [BMI] 30.0-30.9, adult; Z79.899 Other long term (current) drug therapy
CPT/HCPCS: 31500; 36415; 36416; 36600; 51701; 62270; 70450; 70496; 70498; 70553; 71045; 80053; 80061; 80143; 80179; 80202; 80306; 81001; 82010; 82550; 82805; 82945; 83036; 83605; 83690; 83735; 83930; 83935; 84100; 84145; 84157; 84300; 85025; 85060; 86788; 86789; 87040; 87070; 87086; 87205; 87529; 88112; 89051; 93005; 93306; 94002; 94003; 94760; 95816; 95819; 95957; 96361; 96374; 99292; 80307; A9579; J0133; J0290; J0360; J0692; J0696; J1100; J1650; J1940; J2001; J2250; J2272; J2704; J2765; J3370; J3475; J3480; J3490; J7050; J7120; P9045; P9047; Q9967; S0028